=== PATIENT | male | born 1970 | race Caucasian/White ===

== ENCOUNTER 2023-06-29 16:30 | Outpatient (CLI) | payer OTHER, SELFPAY ==
[2023-06-29 18:04] LABS: Alanine Aminotransferase 37 U/L (6-50); Albumin Level 4.6 g/dL (3.5-5.1); Alkaline Phosphatase 59 U/L (38-126); Anion Gap 5 mmol/L (8-16); Aspartate Amino Transferase 32 U/L (17-59); Bilirubin,Total 0.6 mg/dL (0.2-1.3); Blood Urea Nitrogen 17 mg/dL (9-20); CRP < 0.5 mg/dL (<1.0); Calcium 9.8 mg/dL (8.4-10.2); Carbon Dioxide 30 mmol/L (22-30); Chloride 104 mmol/L (98-107); Estimated Glomerular Filt Rate > 60; Glucose 104 mg/dL (65-110); Potassium 3.8 mmol/L (3.4-5.0); Sodium 139 mmol/L (137-145); Uric Acid 8.4 mg/dL (3.5-8.5)
[2023-06-29 18:27] LABS: Erythrocyte Sedimentation Rate 20 mm/hr (0-20)
== END 2023-06-29 16:31 | disposition home or self-care (01) ==
LOC: ANHLAB 16:36
PROVIDERS: Visit Provider Podiatrist Foot & Ankle Surgery
DX: M48.10 Ankylosing hyperostosis [Forestier], site unspecified (principal); M10.079 Idiopathic gout, unspecified ankle and foot
CPT/HCPCS: 36415; 80053; 84550; 85652; 86140